=== PATIENT | female | born 1950 | race Caucasian/White ===

== ENCOUNTER 2019-02-19 08:42 | Outpatient (RCR) | payer MEDICARE, OTHER | END 2019-02-22 | LOC: PT 08:42 | PROVIDERS: ATTEND Specialist | DX: M17.12 Unilateral primary osteoarthritis, left knee (principal); M25.562 Pain in left knee; M62.81 Muscle weakness (generalized); M25.662 Stiffness of left knee, not elsewhere classified ==

== ENCOUNTER 2024-08-12 16:31 | Emergency (ER) | payer MEDICARE, OTHER ==
[~2024-08-12] VITALS: Ht 154.9 cm; Wt 69.9 kg
[2024-08-12 16:37] VITALS: PULSE 86; RESP 15; TEMP 98.7; O2SAT 99
[2024-08-12] MEDS ORDERED: PREDNISONE20 MG PO (16:42)
[2024-08-12] MEDS ORDERED: AZITHROMYCIN250 MG PO (16:42)
== END 2024-08-12 16:45 | disposition home or self-care (01) ==
LOC: ER 16:38
DX: R49.0 Dysphonia (principal); J04.0 Acute laryngitis
CPT/HCPCS: 99283

== ENCOUNTER → 2025-02-17 | Outpatient (REF) | payer MEDICARE, OTHER ==
[~2025-02-17] MED LIST: AZITHROMYCIN250 MG PO; PREDNISONE20 MG PO
== END ==
LOC: RAD 12:43
PROVIDERS: ATTEND Internal Medicine
DX: M79.671 Pain in right foot (principal)

== ENCOUNTER → 2025-02-19 | Outpatient (REF) | payer MEDICARE, OTHER | LOC: MAMMO 12:19 | PROVIDERS: ATTEND Internal Medicine | DX: Z12.31 Encounter for screening mammogram for malignant neoplasm of breast (principal) | CPT/HCPCS: 77067 ==

== ENCOUNTER → 2025-03-10 | Outpatient (REF) | payer MEDICARE, OTHER | LOC: MAMMO 12:48 | PROVIDERS: ATTEND Internal Medicine | DX: R92.30 Dense breasts, unspecified (principal) ==